=== PATIENT | male | born 1965 | race American Indian/Alaskan Native ===

== ENCOUNTER 2017-06-14 17:30 | Inpatient (IN) | payer OTHER ==
[2017-06-14 18:08] LABS: Basophils % (Auto) 0.8 % (0.0-1.8); Eosinophils % (Auto) 3.3 % (0.0-4.3); Hemoglobin 13.6 gm/dl (11.8-15.2); Mean Corpuscular HGB Conc 32 % (32-34); Mean Corpuscular Volume 77 fl (84-94); Platelet Count 160 K/mm3 (140-440); Red Blood Count 5.59 M/mm3 (3.65-5.03); White Blood Count 7.1 K/mm3 (4.5-11.0)
[2017-06-14 18:16] LABS: Mean Corpuscular Hemoglobin 24 pg (28-32)
[2017-06-14 18:19] LABS: INR 1.05 (0.87-1.13)
[2017-06-14 18:27] LABS: Anion Gap 20 mmol/L; Blood Urea Nitrogen 18 mg/dL (9-20); Calcium 9.5 mg/dL (8.4-10.2); Carbon Dioxide 25 mmol/L (22-30); Chloride 99.3 mmol/L (98-107); Glucose 219 mg/dL (75-100); Potassium 4.3 mmol/L (3.6-5.0); Sodium 140 mmol/L (137-145)
--- NOTE | 2017-06-14 19:04 | Emergency Department Report ---
ED General Adult HPI - General Chief complaint: Neuro Symptoms/Deficit Stated complaint: RT ARM PAIN/DIFFICULTY SPEAKING Time Seen by Provider: 06/14/17 19:01 Source: patient Mode of arrival: Ambulatory Limitations: No Limitations - History of Present Illness Initial comments: Patient is a 51-year-old male with a past medical history of high blood pressure diabetes who presents with slurred speech and difficulty moving his right arm that's been going on since yesterday. Patient's symptoms are constant he has facial droop and trouble moving his arm. He states he was resting when this occurred. He thought it would go away but when it didn't he came to the emergency department. He denies having any nausea or vomiting. Patient states that he's never had any prior stroke before. He denies being in any pain. - Related Data Home Medications Medication Instructions Recorded Confirmed Last Taken Linagliptin [Tradjenta] 5 mg PO DAILY 10/14/16 10/16/16 10/14/16 Lisinopril 20 mg PO DAILY 10/14/16 10/16/16 10/14/16 Previous Rx's Medication Instructions Recorded Last Taken Type Aspirin [Aspirin TAB] 325 mg PO QDAY #30 tablet 10/17/16 Unknown Rx AtorvaSTATin [Lipitor] 20 mg PO QHS #30 tablet 10/17/16 Unknown Rx Allergies Allergy/AdvReac Type Severity Reaction Status Date / Time No Known Allergies Allergy Unverified 10/14/16 17:56 ED Review of Systems ROS: Stated complaint: RT ARM PAIN/DIFFICULTY SPEAKING Other details as noted in HPI Constitutional: weakness Eyes: denies: eye pain, eye discharge, vision change ENT: denies: ear pain, throat pain Respiratory: denies: cough, shortness of breath, wheezing Cardiovascular: denies: chest pain, palpitations Endocrine: no symptoms reported Gastrointestinal: denies: abdominal pain, nausea, diarrhea Genitourinary: denies: urgency, dysuria Musculoskeletal: denies: back pain, joint swelling, arthralgia Skin: denies: rash, lesions Neurological: as per HPI, weakness, numbness, paresthesias Psychiatric: denies: anxiety, depression Hematological/Lymphatic: denies: easy bleeding, easy bruising ED Past Medical Hx - Past Medical History Previous Medical History?: Yes Hx Hypertension: Yes Hx Congestive Heart Failure: No Hx Diabetes: Yes Hx Asthma: No Hx COPD: No - Surgical History Past Surgical History?: No - Social History Smoking Status: Never Smoker Substance Use Type: Alcohol, Prescribed - Medications Home Medications: Home Medications Medication Instructions Recorded Confirmed Last Taken Type Linagliptin [Tradjenta] 5 mg PO DAILY 10/14/16 10/16/16 10/14/16 History Lisinopril 20 mg PO DAILY 10/14/16 10/16/16 10/14/16 History Aspirin [Aspirin TAB] 325 mg PO QDAY #30 tablet 10/17/16 Unknown Rx AtorvaSTATin [Lipitor] 20 mg PO QHS #30 tablet 10/17/16 Unknown Rx ED Physical Exam - General Limitations: No Limitations - Head Head exam: Present: atraumatic, normocephalic - Eye Eye exam: Present: normal appearance, other (facial droop) - Respiratory Respiratory exam: Present: normal lung sounds bilaterally. Absent: respiratory distress - Cardiovascular Cardiovascular Exam: Present: regular rate, normal rhythm. Absent: systolic murmur, diastolic murmur, rubs, gallop - GI/Abdominal GI/Abdominal exam: Present: soft, normal bowel sounds - Rectal Rectal exam: Present: deferred - Extremities Exam Extremities exam: Present: other (arm drift difficulty extending and flexing arm ) - Neurological Exam Neurological exam: Present: alert, other (facial nerve deficit on right side of face) - Psychiatric Psychiatric exam: Present: normal affect, normal mood - Skin Skin exam: Present: warm, dry, intact, normal color. Absent: rash ED Course Vital Signs 06/14/17 06/14/17 06/14/17 17:38 19:02 19:44 Temperature 98.4 F 98 F Pulse Rate 99 H 86 Respiratory 20 18 18 Rate Blood Pressure 138/99 Blood Pressure 122/84 [Left] O2 Sat by Pulse 99 99 Oximetry 06/14/17 21:27 Temperature 98 F Pulse Rate 78 Respiratory 18 Rate Blood Pressure Blood Pressure 128/70 [Left] O2 Sat by Pulse 97 Oximetry - Reevaluation(s) Reevaluation #1: 06/14/17 19:01 Reevaluate patient discussed patient with Dr. Myers the hospitalist about the patient for stroke workup. Patient is in no acute distress at this time. ED Medical Decision Making - Lab Data Result diagrams: 06/14/17 17:50 06/14/17 17:50 Laboratory Results - last 24 hr 06/14/17 06/14/17 06/14/17 17:50 17:50 17:50 WBC 7.1 RBC 5.59 H Hgb 13.6 Hct 43.0 MCV 77 L MCH 24 L MCHC 32 RDW 13.0 L Plt Count 160 Lymph % (Auto) 31.1 Jack % (Auto) 8.8 H Eos % (Auto) 3.3 Baso % (Auto) 0.8 Lymph # 2.2 Jack # 0.6 Eos # 0.2 Baso # 0.1 Seg Neutrophils % 56.0 Seg Neutrophils # 4.0 PT 14.2 INR 1.05 APTT 30.0 Thrombin Time Sodium 140 Potassium 4.3 Chloride 99.3 Carbon Dioxide 25 Anion Gap 20 BUN 18 Creatinine 0.9 Estimated GFR > 60 BUN/Creatinine Ratio 20.00 Glucose 219 H Calcium 9.5 Troponin T < 0.010 06/14/17 17:50 WBC RBC Hgb Hct MCV MCH MCHC RDW Plt Count Lymph % (Auto) Jack % (Auto) Eos % (Auto) Baso % (Auto) Lymph # Jack # Eos # Baso # Seg Neutrophils % Seg Neutrophils # PT INR APTT Thrombin Time 15.7 Sodium Potassium Chloride Carbon Dioxide Anion Gap BUN Creatinine Estimated GFR BUN/Creatinine Ratio Glucose Calcium Troponin T - EKG Data -: EKG Interpreted by Az - EKG Data 06/14/17 19:38 Normal sinus rhythm with possible left atrial enlargement and nonspecific T- wave abnormality T-wave inversions in V5 and V6 - Radiology Data Radiology results: report reviewed, image reviewed CT head non contrast: shows Ischemic Subacute Infarct in the left basal ganglia. - Medical Decision Making Chief medical diagnosis: Ischemic Stroke Differential medical diagnosis: metabolic abnormality Kenny's paralysis , HYPOGLYCEMIA, TIA, hemorrhagic stroke Get CBC, CMP, troponin, EKG, CT head CT imaging shows findings of subacute infarct and left basal ganglia. Patient' s symptoms have been going on for at least 24 hours he is outside the window for TPA. He will be admitted for stroke workup. Critical care attestation.: If time is entered above; I have spent that time in minutes in the direct care of this critically ill patient, excluding procedure time. ED Disposition Clinical Impression: Ischemic stroke, Facial droop due to stroke, Right arm weakness, Embolic stroke of left basal ganglia, Hyperglycemia Hypertension Qualifiers: Hypertension type: essential hypertension Qualified Code(s): I10 - Essential ( primary) hypertension Disposition: DC-09 OP ADMIT IP TO THIS HOSP Is pt being admited?: Yes Does the pt Need Aspirin: No Condition: Stable
--- NOTE | 2017-06-14 19:51 | Cat Scan Report ---
FINAL REPORT PROCEDURE: CT HEAD/BRAIN WO CON TECHNIQUE: Computerized tomography of the head was performed without contrast material. HISTORY: neuro deficits \T\lt; 6hrs or sx present upon awakening COMPARISON: 10/14/2016 FINDINGS: Skull and scalp: Normal. Paranasal sinuses: There is near complete opacification of left maxillary sinus as visualized most likely representing a large mucous retention cyst. Ventricles and subarachnoid spaces: Normal. Cerebrum: A large irregular ill-defined hypodense lesion measuring 2.3 x 1.1 centimeters is noted in the left basal ganglia. There is no evidence of any intracranial hemorrhage. No shift of midline structures is noted.. Cerebellum and brainstem: No evidence of hemorrhage, acute infarction or mass. Vasculature: Normal. Comments: None. IMPRESSION: An irregular ill-defined hypodense lesion of left basal ganglia is most consistent with a subacute infarct. No acute intracranial hemorrhage. MRI may be recommended for further evaluation
[2017-06-14] MEDS ORDERED: ZOFRAN IV PRN (21:24)
[2017-06-14] MEDS ORDERED: SODIUM CHLORIDE FLUSH SYRINGE 10 ML IV PRN (21:24)
[2017-06-14] MEDS ORDERED: DULCOLAX PR PRN (21:24)
[2017-06-14] MEDS ORDERED: TYLENOL PO PRN (21:24)
[2017-06-14] MEDS ORDERED: MILK OF MAGNESIA PO PRN (21:24)
--- NOTE | 2017-06-14 21:31 | History and Physical Report ---
History of Present Illness Date of examination: 06/14/17 History of present illness: 51-year-old man with a history of hypertension, diabetes, CVA comes emergency room with complaints of slurred speech and right arm weakness was started yesterday. Symptoms have not worsened Review Of Systems: Constitutional: no fever, chills, weight loss Ears, eyes, nose, mouth and throat: no nasal congestion, no nasal discharge, no sinus pressure, blurry vision, diplopia Neck: No neck pain or rigidity. Cardiovascular: chest pain, orthopnea, palpitations Respiratory: No shortness of breath, cough Gastrointestinal: abdominal pain, hematochezia Genitourinary : no dysuria, frequency , hematuria Musculoskeletal: no joint swelling or muscle ache Integumentary: no rash, no pruritis Neurological: no parathesia Endocrine: no cold or heat intolerance, no polyuria or polydipsia Hematologic/Lymphatic: no easy bruising, no easy bleeding, no gland swelling Allergic/Immunologic: no urticaria, no angioedema. PAST MEDICAL HISTORY:hypertension, diabetes, CVA PAST SURGICAL HISTORY: None FAMILY HISTORY: Hypertension SOCIAL HISTORY: Denies tobacco, drugs, drinking 5 beers a week Medications and Allergies Allergies Allergy/AdvReac Type Severity Reaction Status Date / Time No Known Allergies Allergy Unverified 10/14/16 17:56 Home Medications Medication Instructions Recorded Confirmed Last Taken Type Linagliptin [Tradjenta] 5 mg PO DAILY 10/14/16 10/16/16 10/14/16 History Lisinopril 20 mg PO DAILY 10/14/16 10/16/16 10/14/16 History Aspirin [Aspirin TAB] 325 mg PO QDAY #30 tablet 10/17/16 Unknown Rx AtorvaSTATin [Lipitor] 20 mg PO QHS #30 tablet 10/17/16 Unknown Rx Exam - Physical Exam Narrative exam: Gen. appearance: Patient lying in bed, no apparent distress HEENT: Normocephalic, atraumatic, pupils equally round and reactive to light, extraocular movement intact, and no sclericterus,. No JVD or thyromegaly or nodule,neck supple, no carotid bruit ,mucous membranes moist, no exudate or erythema Heart: S1, S2, regular rate and rhythm Lungs: Clear to auscultation bilaterally, breathing comfortable Abdomen: Positive bowel sounds, nontender, nondistended, no organomegaly Extremity: No edema, cyanosis, clubbing Skin: No rash, nodules, warm, dry Neuro: Oriented 3, cranial nerves II-12 intact, speech is slurred, RUE 4/5, sensory intact - Constitutional Vitals: Temp Pulse Resp BP Pulse Ox 98 F 86 18 122/84 99 06/14/17 19:44 06/14/17 19:44 06/14/17 19:44 06/14/17 19:44 06/14/17 19:44 Results - Labs CBC & Chem 7: 06/14/17 17:50 06/14/17 17:50 Labs: Abnormal lab results 06/14/17 06/14/17 Range/Units 17:50 17:50 RBC 5.59 H (3.65-5.03) M/mm3 MCV 77 L (84-94) fl MCH 24 L (28-32) pg RDW 13.0 L (13.2-15.2) % [place] % (Auto) 8.8 H (0.0-7.3) % Glucose 219 H (75-100) mg/dL - Imaging and Cardiology CT Scan - head: report reviewed Assessment and Plan Assessment Acute CVA Hypertension Diabetes Plan Admit to medicine Do neurochecks, swallow screen Obtain MRI of the head, neck, echo Start aspirin, statin, IV hydralazine for blood pressure control Consult neurology, physical and occupational therapy Check fingersticks and initiate insulin sliding scale Start DVT prophylaxis
[2017-06-14] MEDS ORDERED: D50W (25GM) IV PRN (21:41)
[2017-06-14] MEDS: ZOCOR PO SCH (22:38)
[2017-06-14] MEDS: NOVOLOG SUB-Q SCH (23:11)
--- NOTE | 2017-06-15 05:02 | Admit Criteria Form ---
Admission Criteria Documentation: STROKE: ISCHEMIC Clinical Indications for Admission to Inpatient Care (Place 'X' for any and all applicable criteria): Admission is indicated for ANY ONE of the following(1)(2)(3)(4): [X]I. Acute stroke Extended stay beyond goal length of stay may be needed for(1)(2) [ ]a) Major deficit or clinical deterioration [ ]b) Hospital-acquired infection (eg, urinary tract infection, pneumonia) [ ]c) Embolic cause of stroke [ ]d) Venous thromboembolism(9) [ ]e) Seizures [ ]f) Bleeding (eg, cerebral) [ ]g) Increased intracranial pressure [ ]h) Comorbidities [ ]i) Surgical intervention The original [facility] content created by [employer] has been revised. The portions of the content which have been revised are identified through the use of italic text or in bold, and [facility] has neither reviewed nor approved the modified material. All other unmodified content is copyright [facility]. Please see references footnoted in the original [facility] edition 2016 Admission Criteria Met: Yes
--- NOTE | 2017-06-15 07:58 | Progress Note ---
<LEONARD INTERIANO - Last Filed: 06/15/17 14:10> Assessment and Plan Assessment and plan: CVA (cerebral vascular accident) MRI head and [place]ipe shows Acute/subacute infract left middle cerebral artery. No evidence of of acute hemorrhage. CT of the head shows irregular ill-defined hypodense lesion subacute left basal ganglia infarct We will get Carotid artery Doppler No TPA was administered as he was outside the window Patient has right upper and lower extremity plegia Continue Plavix and statin speech therapy Physical therapy ordered Occupational therapy ordered 2 Hemiparesis affecting right side as late effect of cerebrovascular accident Physical therapy ordered Occupational therapy ordered Swallow evaluation (3) Accelerated hypertension We continue home on the hypertensive pillis IV hydralazine for SBP >160 Closely monitor blood pressure Hyperlipidemia Continue on Statin's Discussed with the patient about the importance of low fat diet, physical execrsie, reducing intake of high fat foods to improve cardiovascular diseases. Diabetes mellitus Accu-Chek before meals and at bedtime Sliding scale insulin/NovoLog ADA/cardiac diet as tolerated (4) DVT prophylaxis Lovenox History Interval history: Patient alert and oriented to person, place and time and reported that is having difficultly of speaking. Patient denies any pain or dysphagia, headaches at present time. Hospitalist Physical - Constitutional Vitals: Temp Pulse Resp BP Pulse Ox 97.6 F 78 18 125/83 95 06/15/17 02:40 06/15/17 02:40 06/15/17 02:49 06/15/17 02:40 06/15/17 07:33 General appearance: Present: no acute distress, other (slurred speech) - EENT Eyes: Present: PERRL ENT: hearing intact - Neck Neck: Present: supple - Respiratory Respiratory effort: normal Respiratory: bilateral: CTA - Cardiovascular Heart rate: 80 Rhythm: regular Heart Sounds: Present: S1 & S2 - Extremities Extremities: no ischemia, abnormal (right upper and lower extremity weakness 4/ 5 ROM) Peripheral Pulses: within normal limits - Abdominal General gastrointestinal: soft, non-tender - Integumentary Integumentary: Present: clear, warm, dry - Psychiatric Psychiatric: appropriate mood/affect - Neurologic Neurologic: CNII-XII intact - Allied Health Allied health notes reviewed: nursing Results - Labs CBC & Chem 7: 06/14/17 17:50 06/14/17 17:50 Labs: Laboratory Last Values WBC 7.1 K/mm3 (4.5-11.0) 06/14/17 17:50 RBC 5.59 M/mm3 (3.65-5.03) H 06/14/17 17:50 Hgb 13.6 gm/dl (11.8-15.2) 06/14/17 17:50 Hct 43.0 % (35.5-45.6) 06/14/17 17:50 MCV 77 fl (84-94) L 06/14/17 17:50 MCH 24 pg (28-32) L 06/14/17 17:50 MCHC 32 % (32-34) 06/14/17 17:50 RDW 13.0 % (13.2-15.2) L 06/14/17 17:50 Plt Count 160 K/mm3 (140-440) 06/14/17 17:50 Lymph % (Auto) 31.1 % (13.4-35.0) 06/14/17 17:50 Bartholomew % (Auto) 8.8 % (0.0-7.3) H 06/14/17 17:50 Eos % (Auto) 3.3 % (0.0-4.3) 06/14/17 17:50 Baso % (Auto) 0.8 % (0.0-1.8) 06/14/17 17:50 Lymph # 2.2 K/mm3 (1.2-5.4) 06/14/17 17:50 Bartholomew # 0.6 K/mm3 (0.0-0.8) 06/14/17 17:50 Eos # 0.2 K/mm3 (0.0-0.4) 06/14/17 17:50 Baso # 0.1 K/mm3 (0.0-0.1) 06/14/17 17:50 Seg Neutrophils % 56.0 % (40.0-70.0) 06/14/17 17:50 Seg Neutrophils # 4.0 K/mm3 (1.8-7.7) 06/14/17 17:50 PT 14.2 Sec. (12.2-14.9) 06/14/17 17:50 INR 1.05 (0.87-1.13) 06/14/17 17:50 APTT 30.0 Sec. (24.2-36.6) 06/14/17 17:50 Thrombin Time 15.7 Sec. (15.1-19.6) 06/14/17 17:50 Sodium 140 mmol/L (137-145) 06/14/17 17:50 Potassium 4.3 mmol/L (3.6-5.0) 06/14/17 17:50 Chloride 99.3 mmol/L (98-107) 06/14/17 17:50 Carbon Dioxide 25 mmol/L (22-30) 06/14/17 17:50 Anion Gap 20 mmol/L 06/14/17 17:50 BUN 18 mg/dL (9-20) 06/14/17 17:50 Creatinine 0.9 mg/dL (0.8-1.5) 06/14/17 17:50 Estimated GFR > 60 ml/min 06/14/17 17:50 BUN/Creatinine Ratio 20.00 % 06/14/17 17:50 Glucose 219 mg/dL (75-100) H 06/14/17 17:50 Calcium 9.5 mg/dL (8.4-10.2) 06/14/17 17:50 Troponin T < 0.010 ng/mL (0.00-0.029) 06/14/17 17:50 Triglycerides 193 mg/dL (2-149) H 06/15/17 04:00 Cholesterol 187 mg/dL (50-199) 06/15/17 04:00 LDL Cholesterol Direct 120 mg/dL (50-130) 06/15/17 04:00 HDL Cholesterol 29 mg/dL (40-59) L 06/15/17 04:00 Cholesterol/HDL Ratio 6.44 % 06/15/17 04:00 - Imaging and Cardiology CT Scan - head: image reviewed (CT of the head shows irregular ill-defined hypodense lesion subacute left basal ganglia infarct ) <NISA KIM - Last Filed: 06/15/17 15:47> Assessment and Plan Assessment and plan: I saw and evaluated the patient. I agree with the findings and the plan of care as documented in the Nurse Practitioner's~note, with the following corrections and additions. Patient presented with slurred speech, right-sided weakness. MRI confirms acute ischemic stroke. On Aspirin and Plavix. Neurology following. For physical therapy, occupational therapy and speech therapy evaluations. I discussed with the patient and at bedside. Hospitalist Physical - Constitutional Vitals: Temp Pulse Resp BP Pulse Ox 98.5 F 82 18 127/80 98 06/15/17 08:48 06/15/17 10:00 06/15/17 10:00 06/15/17 08:48 06/15/17 08:48 - Neurologic Neurologic: CNII-XII intact, other (right hemiparesis 4/5, dysarthria,awake, alert,oriented x 3) Results - Labs CBC & Chem 7: 06/14/17 17:50 06/14/17 17:50 Labs: Laboratory Last Values WBC 7.1 K/mm3 (4.5-11.0) 06/14/17 17:50 RBC 5.59 M/mm3 (3.65-5.03) H 06/14/17 17:50 Hgb 13.6 gm/dl (11.8-15.2) 06/14/17 17:50 Hct 43.0 % (35.5-45.6) 06/14/17 17:50 MCV 77 fl (84-94) L 06/14/17 17:50 MCH 24 pg (28-32) L 06/14/17 17:50 MCHC 32 % (32-34) 06/14/17 17:50 RDW 13.0 % (13.2-15.2) L 06/14/17 17:50 Plt Count 160 K/mm3 (140-440) 06/14/17 17:50 Lymph % (Auto) 31.1 % (13.4-35.0) 06/14/17 17:50 Bartholomew % (Auto) 8.8 % (0.0-7.3) H 06/14/17 17:50 Eos % (Auto) 3.3 % (0.0-4.3) 06/14/17 17:50 Baso % (Auto) 0.8 % (0.0-1.8) 06/14/17 17:50 Lymph # 2.2 K/mm3 (1.2-5.4) 06/14/17 17:50 Bartholomew # 0.6 K/mm3 (0.0-0.8) 06/14/17 17:50 Eos # 0.2 K/mm3 (0.0-0.4) 06/14/17 17:50 Baso # 0.1 K/mm3 (0.0-0.1) 06/14/17 17:50 Seg Neutrophils % 56.0 % (40.0-70.0) 06/14/17 17:50 Seg Neutrophils # 4.0 K/mm3 (1.8-7.7) 06/14/17 17:50 PT 14.2 Sec. (12.2-14.9) 06/14/17 17:50 INR 1.05 (0.87-1.13) 06/14/17 17:50 APTT 30.0 Sec. (24.2-36.6) 06/14/17 17:50 Thrombin Time 15.7 Sec. (15.1-19.6) 06/14/17 17:50 Sodium 140 mmol/L (137-145) 06/14/17 17:50 Potassium 4.3 mmol/L (3.6-5.0) 06/14/17 17:50 Chloride 99.3 mmol/L (98-107) 06/14/17 17:50 Carbon Dioxide 25 mmol/L (22-30) 06/14/17 17:50 Anion Gap 20 mmol/L 06/14/17 17:50 BUN 18 mg/dL (9-20) 06/14/17 17:50 Creatinine 0.9 mg/dL (0.8-1.5) 06/14/17 17:50 Estimated GFR > 60 ml/min 06/14/17 17:50 BUN/Creatinine Ratio 20.00 % 06/14/17 17:50 Glucose 219 mg/dL (75-100) H 06/14/17 17:50 POC Glucose 245 (70-105) H 06/15/17 13:22 Calcium 9.5 mg/dL (8.4-10.2) 06/14/17 17:50 Troponin T < 0.010 ng/mL (0.00-0.029) 06/14/17 17:50 Triglycerides 193 mg/dL (2-149) H 06/15/17 04:00 Cholesterol 187 mg/dL (50-199) 06/15/17 04:00 LDL Cholesterol Direct 120 mg/dL (50-130) 06/15/17 04:00 HDL Cholesterol 29 mg/dL (40-59) L 06/15/17 04:00 Cholesterol/HDL Ratio 6.44 % 06/15/17 04:00
[2017-06-15] MEDS ORDERED: ASPIRIN PO SCH (10:00)
[2017-06-15] MEDS ORDERED: LOVENOX SUB-Q SCH (10:00)
--- NOTE | 2017-06-15 10:54 | Magnetic Resonance Report ---
MRI scan of brain: History: Stroke. Technique: Multiplanar, multisequence images were obtained without contrast injection. Findings: There is large focal area of restricted diffusion measuring 3 cm in anteroposterior diameter and 8 mm in transverse diameter at left basal ganglia. There is 3 mm focal areas of restricted diffusion noted in the adjacent left temporal lobe. Hyperintense signals are noted in the same location on flair imaging and T2 weighted images. T1-weighted images appears unremarkable. The right cerebral hemisphere appears normal. No midline shift. Normal brainstem and cerebellum. No extra-axial fluid collections. Impression: Acute/subacute infarct left cerebral hemisphere as detailed above. No evidence of acute hemorrhage.
--- NOTE | 2017-06-15 11:04 | Magnetic Resonance Report ---
MRA of brain with 3-D imaging and postprocessing: History: Stroke. Findings: The M2 and M3 segment of left middle cerebral artery appears very small in caliber with stenotic areas with decrease in flow to the cortical branches. The right MCA appears normal. The posterior cerebral arteries appears normal. Codominant vertebral arteries and normal basilar artery. Impression: Probable thromboembolism left middle cerebral artery.
[2017-06-15] MEDS: NOVOLOG SUB-Q SCH ×5 (12:31→22:20)
[2017-06-15] MEDS: LOVENOX SUB-Q SCH (12:32)
[2017-06-15] MEDS: ASPIRIN PO SCH (12:32)
[2017-06-15] MEDS: PLAVIX PO SCH (12:33)
[2017-06-15] MEDS: ZESTRIL PO SCH (12:33)
[2017-06-15] MEDS: TRADJENTA PO SCH (12:34)
--- NOTE | 2017-06-15 12:48 | Consultation ---
History of Present Illness - Reason for Consult Consult date: 06/15/17 stroke - History of Present Illness small acute cerebral infarct of the ischemic type rec statin asa HTN control MRI reviewed and clearly shows stroke thanks Medications and Allergies Allergies Allergy/AdvReac Type Severity Reaction Status Date / Time No Known Allergies Allergy Unverified 10/14/16 17:56 Home Medications Medication Instructions Recorded Confirmed Last Taken Type Linagliptin [Tradjenta] 5 mg PO DAILY 10/14/16 06/15/17 1 Day Ago History Lisinopril 20 mg PO DAILY 10/14/16 06/15/17 1 Day Ago History Aspirin [Aspirin TAB] 325 mg PO QDAY #30 tablet 10/17/16 06/15/17 1 Day Ago Rx AtorvaSTATin [Lipitor] 20 mg PO QHS #30 tablet 10/17/16 06/15/17 1 Day Ago Rx Active Meds: Active Medications Acetaminophen (Tylenol) 650 mg PO Q4H PRN PRN Reason: Pain, Mild (1-3) Aspirin (Aspirin) 325 mg PO QDAY [facility] Last Admin: 06/15/17 12:32 Dose: 325 mg Bisacodyl (Dulcolax) 10 mg MD QDAY PRN PRN Reason: Constipation Clopidogrel Bisulfate (Plavix) 75 mg PO QDAY [facility] Last Admin: 06/15/17 12:33 Dose: 75 mg Dextrose (D50w (25gm)) 50 ml IV PRN PRN PRN Reason: Hypoglycemia Enoxaparin Sodium (Lovenox) 40 mg SUB-Q QDAY@1000 [facility] Last Admin: 06/15/17 12:32 Dose: 40 mg Insulin Aspart (Novolog) 0 units SUB-Q ACHS [facility] PRN Reason: Protocol Last Admin: 06/15/17 12:34 Dose: Not Given Linagliptin (Tradjenta) 5 mg PO DAILY [facility] Last Admin: 06/15/17 12:34 Dose: 5 mg Lisinopril (Zestril) 20 mg PO DAILY [facility] Last Admin: 06/15/17 12:33 Dose: 20 mg Magnesium Hydroxide (Milk Of Magnesia) 30 ml PO Q4H PRN PRN Reason: Constipation Ondansetron HCl (Zofran) 4 mg IV Q8H PRN PRN Reason: N/V unrelieved by Christo Simvastatin (Zocor) 20 mg PO QHS [facility] Last Admin: 06/14/17 22:38 Dose: 20 mg Sodium Chloride (Sodium Chloride Flush Syringe 10 Ml) 10 ml IV PRN PRN PRN Reason: LINE FLUSH Exam - Constitutional Vitals: Temp Pulse Resp BP Pulse Ox 98.5 F 82 18 127/80 98 06/15/17 08:48 06/15/17 10:00 06/15/17 10:00 06/15/17 08:48 06/15/17 08:48 Results - Labs CBC & Chem 7: 06/14/17 17:50 06/14/17 17:50 Labs: Abnormal lab results 06/14/17 06/15/17 Range/Units 22:17 04:00 POC Glucose 167 H (70-105) Triglycerides 193 H (2-149) mg/dL HDL Cholesterol 29 L (40-59) mg/dL
[2017-06-15] MEDS: ZOCOR PO SCH (22:33)
[2017-06-16] MEDS: NOVOLOG SUB-Q SCH ×2 (09:08→12:41)
[2017-06-16] MEDS: ZESTRIL PO SCH (10:17)
[2017-06-16] MEDS: LOVENOX SUB-Q SCH (10:17)
[2017-06-16] MEDS: PLAVIX PO SCH (10:17)
[2017-06-16] MEDS: ASPIRIN PO SCH (10:17)
[2017-06-16] MEDS: TRADJENTA PO SCH (10:18)
--- NOTE | 2017-06-16 10:45 | Discharge Summary ---
Providers - Providers Date of Admission: 06/14/17 21:24 Date of discharge: 06/16/17 Attending physician: JORDAN KEY 06/15/17 00:01 Consult to Physician [CONS] Routine Consulting Provider: CHELI LEWIS Reason For Exam: cva Place consult to:: Notified:: Phone number called:: [phone] Was contact made?: Yes If yes, spoke with:: JESSICA Time called:: 08:56 Primary care physician: [employer] Hospitalization Condition: Stable Pertinent studies: 2-D echocardiogram, MRI of the brain, CT scan of the head, carotid Doppler. Hospital course: 51-year-old man with a history of hypertension, diabetes, CVA comes emergency room with complaints of slurred speech and right arm weakness. Discharge diagnosis and management: CVA (cerebral vascular accident) MRI head and Luis Felipe shows Acute/subacute infract left middle cerebral artery. No evidence of of acute hemorrhage. CT of the head shows irregular ill-defined hypodense lesion subacute left basal ganglia infarct Carotid artery Doppler showed less than 50% stenosis bilaterally Data echocardiogram obtained and showed normal ejection fraction No TPA was administered as he was outside the window Patient has right upper and lower extremity plegia We will Continue Plavix and statin PT OT evaluated her and recommended no skilled PT for him Hemiparesis affecting right side as late effect of cerebrovascular accident Patient will do outpatient PT OT as needed Accelerated hypertension BP well controlled with current medications Hyperlipidemia Continue on Statin's Discussed with the patient about the importance of low fat diet, physical execrsie, reducing intake of high fat foods to improve cardiovascular diseases. Diabetes mellitus ADA/cardiac diet as tolerated f/u with PCP in one week Disposition: DC-01 TO HOME OR SELFCARE Time spent for discharge: 32 minutes Core Measure Documentation - Palliative Care Palliative Care/ Comfort Measures: Not Applicable - Core Measures Any of the following diagnoses?: stroke - Stroke Discharge Requirements Statin for LDL = or >70 mg/dl on DC: Yes Anticoag for atrial fib/atrial flutter: Not Applicable Antithrombotic for ischemic stroke: Yes Exam - Constitutional Vitals: Temp Pulse Resp BP Pulse Ox 98.8 F 78 18 122/90 100 06/16/17 08:52 06/16/17 10:06/16/17 08:52 06/16/17 10:06/16/17 08:52 General appearance: Present: no acute distress, well-nourished - EENT Eyes: Present: PERRL ENT: hearing intact, clear oral mucosa - Neck Neck: Present: supple, normal ROM - Respiratory Respiratory effort: normal Respiratory: bilateral: CTA - Cardiovascular Heart Sounds: Present: S1 & S2. Absent: rub, click - Extremities Extremities: pulses symmetrical, No edema Peripheral Pulses: within normal limits - Abdominal General gastrointestinal: Present: soft, non-tender, non-distended, normal bowel sounds - Integumentary Integumentary: Present: clear, warm, dry - Musculoskeletal Musculoskeletal: right sided weakness - Psychiatric Psychiatric: appropriate mood/affect, intact judgment & insight - Neurologic Neurologic: CNII-XII intact, other (right-sided weakness more on the upper extremity) Plan Activity: fall precautions Weight Bearing Status: Non-Weight Bearing Diet: low fat, low salt Follow up with: PRIMARY CARE, [Primary Care Provider] - 3-5 Days Prescriptions: Clopidogrel [Plavix] 75 mg PO QDAY #30 tablet
[2017-06-16 13:02] VITALS: BP 132/91
--- NOTE | 2017-06-19 08:59 | Vascular Lab Report ---
CAROTID DUPLEX STUDY: RIGHT PSVEDV CCA PROX: 60 14 CCA DIST:8320 ICA PROX:5017 ICA MID:6326 ICA DIST:5519 ECA: [id number] VERT: 31 20 LEFT PSVEDV CCA PROX:9615 CCA DIST:5211 ICA PROX:4011 ICA MID:5622 ICA DIST:5422 ECA: 547 VERT: 38 12 REASON FOR EXAM: Stroke. COMMENTS ON THE RIGHT: Doppler frequency analysis is consistent with 16 to 49 percent diameter reduction of the internal carotid artery. Minimal amount of plaque is seen. The common carotid artery is patent. The external carotid artery is patent. The vertebral artery has antegrade flow. COMMENTS ON THE LEFT: Doppler frequency analysis is consistent with 16 to 49 percent diameter reduction of the internal carotid artery. Minimal amount of plaque is seen. The common carotid artery is patent. The external carotid artery is patent. The vertebral artery has antegrade flow. IMPRESSION: Less than 50% diameter reduction in the internal carotid arteries bilaterally. Consider repeat carotid artery duplex in 12 months.
== END 2017-06-16 14:48 | disposition home or self-care (01) | DRG 65 ==
LOC: ED 17:30 → 4A 21:24
PROVIDERS: ADMIT Internal Medicine; ATTEND Internal Medicine
DX: I63.8 Other cerebral infarction (principal); G81.91 Hemiplegia, unspecified affecting right dominant side; E78.5 Hyperlipidemia, unspecified; I10 Essential (primary) hypertension; E11.65 Type 2 diabetes mellitus with hyperglycemia; R47.81 Slurred speech; Z82.49 Family history of ischemic heart disease and other diseases of the circulatory system; Z79.899 Other long term (current) drug therapy; Z79.82 Long term (current) use of aspirin
CPT/HCPCS: 36415; 70450; 70544; 70551; 80048; 80061; 82962; 84484; 85025; 85610; 85670; 85730; 93005; 93010; 93306; 93880; 99285; J1650; J1815